=== PATIENT | female | born 1980 | race Caucasian/White ===

== ENCOUNTER 2017-10-30 05:53 | Day surgery (SDC) | payer OTHER ==
[~2017-10-30] VITALS: Ht 167.6 cm; Wt 100.0 kg
[2017-10-30] MEDS ORDERED: LIDOCAINE HCL 2% 5 ML JELLY TP ONE (05:54)
[2017-10-30] MEDS ORDERED: BENZOCAINE 20% 50 MCG/SPRAY 57 GM TP ONE (05:54)
[2017-10-30] MEDS ORDERED: LIDOCAINE HCL 4% 50 ML SOLUTION TP ONE (05:54)
[2017-10-30] MEDS ORDERED: ALBUTEROL SULFATE 2.5 MG/0.5 ML NEB SOLUTION NEB ONE (05:54)
[2017-10-30] MEDS ORDERED: SODIUM CHLORIDE 0.9% 1,000 ML IV ONE ×2 (06:02→06:30)
[2017-10-30] MEDS ORDERED: MYCO250C7 PO (07:20)
[2017-10-30] MEDS ORDERED: OXYB5 PO (07:20)
[2017-10-30] MEDS ORDERED: ZIPR60CA2 PO (07:20)
[2017-10-30] MEDS ORDERED: ACET-66 PO (07:20)
[2017-10-30] MEDS ORDERED: LITH300C3 PO (07:20)
[2017-10-30] MEDS ORDERED: MONT10TA21 PO (07:20)
[2017-10-30] MEDS ORDERED: FAMO20 PO (07:20)
[2017-10-30] MEDS ORDERED: TOPI25 PO (07:20)
[2017-10-30] MEDS ORDERED: MET500 PO (07:20)
[2017-10-30] MEDS ORDERED: PILOC5 PO (07:20)
[2017-10-30] MEDS ORDERED: LOVA20 PO (07:20)
[2017-10-30] MEDS ORDERED: PREDAOS OU (07:20)
[2017-10-30] MEDS ORDERED: ADAL40PE SQ (07:20)
[2017-10-30] MEDS ORDERED: FentaNYL CITRATE-PF 100 MCG/2 ML VIAL ONE (08:12)
[2017-10-30] MEDS ORDERED: MIDAZOLAM HCL 2 MG/2 ML VIAL ONE (08:12)
[2017-10-30] MEDS ORDERED: MethylPREDNISolone SOD SUCC 125 MG/2 ML VIAL IVP ONE (08:45)
[2017-10-30] MEDS ORDERED: OXYGEN THERAPY IH SCH (20:00)
== END 2017-10-30 09:40 | disposition home or self-care (01) ==
LOC: SURGERY 05:53
PROVIDERS: ATTEND Internal Medicine Critical Care Medicine
DX: J38.4 Edema of larynx (principal); B37.0 Candidal stomatitis; F12.21 Cannabis dependence, in remission; D86.89 Sarcoidosis of other sites; Z87.891 Personal history of nicotine dependence; Z88.0 Allergy status to penicillin; Z98.890 Other specified postprocedural states; Z79.82 Long term (current) use of aspirin; Z79.899 Other long term (current) drug therapy
CPT/HCPCS: 31623; 31624; 71045; 87015; 87070; 87205; 87220; 88108; 88312; J2250; J3010; J7030